=== PATIENT | female | born 1985 | race Caucasian/White ===

== ENCOUNTER 2019-06-11 17:27 | Outpatient (CLI) | payer BC, SELFPAY ==
--- NOTE | ~2019-06-11 | US_ITS ---
EXAMINATION: US OB <=14 wk fetus w TV EXAM DATE: 06/11/2019 18:11 INDICATION: Possible ectopic , vaginal bleeding. Beta hCG plateaued. First trimester. TECHNIQUE: Pelvic obstetrical transabdominal and transvaginal sonogram was performed by a cristina olivier. There are multiple grayscale and Doppler images available for interpretation. There are no odin ier studies of this gestation for comparison. FINDINGS: Uterus measures 8.6 x 7.0 x 4.6 cm, without intrauterine gestation identified. Uterus is r etroverted. Endometrial stripe measures 4 mm, within normal limits. There is hyperechoic focus which is in or near the endometrial cavity at the fundus measuring 8 mm, causing shadowing, likely calcific ation. Other smaller hyperechoic foci within the endometrial stripe. There is small to moderate amoun t of free pelvic fluid which is proteinaceous given the echogenicity. Right adnexa: The ovary measures 2.8 x 1.9 x 1.1 cm and is morphologically normal. Ovarian vascular f low confirmed. Immediately lateral, contiguous to the right ovary there is a thick-walled cystic stru cture measuring 1.6 x 1.2 x 1.3 cm, possible tubal ectopic but no yolk sac or pole co nfirmed within the cystic portion. There is some hypervascularity surrounding this. Left adnexa: The left ovary is normal in size and morphology. Vascular flow confirmed. IMPRESSION: 1. Thick-walled cystic structure contiguous to right ovary, possible tubal ectopic but no pole or yolk sac confirmed. 2. Small to moderate amount of proteinaceous free pelvic fluid, could be hemorrhage. 3. Echogenic foci within the endometrium or endometrial cavity, could be calcifications or less like ly tiny foci of gas. I confirmed patient is in the waiting room while Kevin Mcallister MD notified of results. Reviewed, dictated and finalized at location A. D AND FAMILY SERVICES WORKER IMPRESSION: 1. Thick-walled cystic structure contiguous to right ovary, possible tubal ect opic but no pole or yolk sac confirmed. 2. Small to moderate amount of proteinaceous free pelvic fluid, could be hemor rhage. 3. Echogenic foci within the endometrium or endometrial cavity, could be calci fications or less likely tiny foci of gas. I confirmed patient is in the waiting room while Kevin Mcallister MD notifie d of results.
== END 2019-06-11 17:28 | disposition home or self-care (01) ==
LOC: ANHIMG 17:32
PROVIDERS: Visit Provider Obstetrics & Gynecology
DX: O20.0 Threatened abortion (principal); Z3A.00 Weeks of gestation of pregnancy not specified
CPT/HCPCS: 76801; 76817

== ENCOUNTER 2019-06-12 09:24 | Day surgery (SDC) | payer BC, SELFPAY ==
[2019-06-12] VITALS (12 sets, daily range): BP systolic 103–126; BP diastolic 59–85; PULSE 72–99; RESP 12–19; TEMP 36.1–37.3; O2SAT 98–100; BMI 25.7
--- NOTE | 2019-06-12 12:45 | WPDANESEPPF ---
Anes - Initial Pre Proc Eval Procedure: Operation Date: 06/12/19 13:00 Proposed Procedures p Diagnostic Laparoscopy Possible Hysteroscopy, Dilation And Curettage - Neida Camilo MD Date/Time: 06/12/19 12:45 Surgeon: Neida Camilo MD Pre Op Diagnosis: o20.0 Patient Data Age: 33 Gender: F Height: Weight: Allergies Allergy/AdvReac Type Severity Reaction Status Date / Time No Known Allergies Allergy Unknown Verified 06/12/19 12:24 Home Medications Medication Instructions Recorded Confirmed Type No Home Medications 06/11/19 06/12/19 History Laboratory Tests 06/12/19 06/12/19 09:47 09:47 Beta HCG, Quant 3299.20 mIU/ML mIU/ML Blood Type A Negative Antibody Screen Negative Doses of RhIg Required 1 Patient hx anesthesia problems: none Family hx anesthesia problems: none [facility] Social History Social History (Updated 06/12/19 @ 12:45 by James Matthew DO) Smoking status: Former smoker Second hand tobacco smoke exposure: No Smoking end date: 04/08/05 Alcohol intake: current Anes - Eval Final PreProcedure Day of Procedure 06/12/19 12:45 Patient weight: normal Heart: regular rate and rhythm Lungs: clear to auscultation and normal air movement Airway: Mallampati scale class 1 Neurological: alert and oriented Last oral intake: 6 hours (eggs and bagel 0900) ASA classification: II Emergent: yes Anesthetic plan: proceed Anesthesia type and monitoring: general ETT and standard monitoring Informed Consent: The patient's anesthetic plan and its attendant risks and benefits were discussed with the patient/family/POA. Questions were solicited and answers provided to the satisfaction of the patient/family/POA.
[2019-06-12] MEDS: LACTATED RINGERS 1,000 ML 30 ML IV CONT ×3 (12:50→17:03)
[2019-06-12 13:04] LABS: Hematocrit 38.1 % (37.0-47.0)
--- NOTE | 2019-06-12 13:08 | PM.HPGS ---
History of Present Illness History of Present Illness Consent: Risks, benefits, and alternatives have been discussed and questions answered. Patient agrees to proceed with procedure. Chief complaint: o20.0 Narrative: Ashlee Drake is a 33 year old female LMP 05/10/2019 who presents for surgical management of presumed ectopic . Patient reports +UPT at home on 06/06 and reports bleeding the following day. Bleeding has since slowly subsided. Denies significant pain. She has had serial BHCG measurements over the past week which showed an abnormal rise. US done today showed no IUP with a thick walled structure in R adnexa measuring approx. 1.6 x 1.2 x 1.3 cm with some hypervascularity. Due to the inappropriate rise of BHCG and high suspicion for ectopic , decision made to proceed with diagnostic laparoscopy, possible operative laparoscopy with removal of ectopic , and suction D&C. Patient is Rh negative. Review of Systems Review of Systems: All systems reviewed & are unremarkable except as noted in HPI and below Constitutional: Constitutional: Reports as per HPI, Reports no additional constitutional complaints, Denies chills, Denies fever(s), Denies headache(s) and Denies night sweats Eyes: Eyes: Reports as per HPI and Reports no additional eye complaints ENT: Reports system reviewed and no additional complaints, except as documented, Reports as per HPI, Reports Normal hearing present and Denies headache(s) Cardiovascular: Cardiovascular: Reports as per HPI, Reports no additional cardiovascular complaints, Denies chest pain and Denies dyspnea Respiratory: Respiratory: Reports as per HPI, Reports no additional respiratory complaints, Denies cough and Denies dyspnea Gastrointestinal: Gastrointestinal: Reports as per HPI, Reports no additional gastrointestinal complaints, Denies abdominal pain, Denies change in bowel habits, Denies change in stool character, Denies nausea and Denies vomiting Genitourinary: Genitourinary: Reports no additional female genitourinary complaints, Reports as per HPI, Denies abnormal vaginal bleeding, Denies genital lesions, Denies hot flashes, Denies dyspareunia, Denies pelvic pain, Denies sexual dysfunction, Denies urinary incontinence, Denies vaginal discharge, Denies vaginal dryness and Denies vaginal odor Musculoskeletal: Musculoskeletal: Reports no additional musculoskeletal complaints and Reports as per HPI Integumentary/Breasts: Skin/Breast: Reports system reviewed and no additional complaints, except as docu, Reports as per HPI, Denies breast pain and Denies nipple discharge Neurologic: Reports system reviewed and no additional complaints, except as documented, Reports as per HPI, Reports Normal hearing present and Denies headache(s) Psychiatric: Psychiatric: Reports no additional psychiatric complaints, Reports as per HPI, Denies anxiety and Denies depression Endocrine: Endocrine: Reports no additional endocrine complaints and Reports as per HPI Hematologic/Lymphatic: Hematologic/Lymphatic: Reports no additional hematologic/lymphatic complaints and Reports as per HPI Allergic/Immunologic: Allergic/Immunologic: Reports no additional allergic/immunologic complaints and Reports as per HPI PMFSH Past Medical History Medical History (Updated 06/12/19 @ 13:21 by Neida Camilo MD) Depression Vaginal delivery x 2 Surgical History Surgical History (Updated 06/12/19 @ 13:20 by Neida Camilo MD) H/O lithotripsy x2 History of dilation and curettage Family History Family History Mother Family history of malignant neoplasm of uterus Social History Social History Smoking status: Former smoker Second hand tobacco smoke exposure: No Smoking end date: 04/08/05 Alcohol intake: current Meds Home Medications and Allergies Home Medications Medication I
--- NOTE | 2019-06-12 14:59 | PM.PROC ---
Procedure Note - Detailed Date of procedure: 06/12/19 Pre-op diagnosis: o20.0 Suspected right ectopic Post-op diagnosis: same Procedure performed: Laparoscopic right salpingectomy Suction dilation and curettage Description of procedure: The patient was taken to the operating room where she self transferred to operating room table. She was placed in dorsal supine position. Anesthesia was administered and found to be adequate. The patient was repositioned in dorsal lithotomy position with the use of Andrey stirrups. An examination anesthesia was performed with the uterus measuring approximately 7-8 week size. Cervical os closed. Minimal dark brown discharge noted on examining glove. She was prepped and draped in usual sterile fashion. A red rubber catheter was used to drain the bladder of 100 cc of light yellow urine. A bivalve speculum was inserted into the vagina. The cervix was well visualized. The anterior lip of the cervix was grasped with a single-tooth tenaculum. 10 cc of 1% lidocaine was used to administer a paracervical block with 5 cc on either side. The cervix was sounded to 8 cm. The cervix was serially dilated to a size 8 Hegar dilator. A size 8 rigid curette was introduced into the uterine cavity. The curette was attached to suction tubing and the aspirate her was activated. The curette was gently rotated to clear the uterus of all contents. Three short passes were made with the curette and a gritty texture was noted. A HUMI uterine manipulator was then inserted into the uterus and insufflated for use during laparoscopic portion of the case. The tenaculum was removed. Minimal oozing was noted from the tenaculum puncture sites. Bleeding was made hemostatic with silver nitrate. The speculum was removed. Internal Medicine Veterinary Technician's gloves were changed and attention was turned to the patient's abdomen. A small amount of Exparel was injected in the infraumbilical region. A small infraumbilical incision was made with a scalpel. With the abdomen tented up, a Veress needle was introduced into the abdominal cavity. Confirmation was made with saline. The Veress needle was attached to carbon dioxide tubing and insufflation was begun. When adequate pneumoperitoneum was achieved at 15 mmHg, the Veress needle was removed. An Optiview trocar was introduced into the abdominal cavity under direct visualization with the laparoscope. The trocar was removed and the laparoscope was replaced through the sheath. The patient was placed in Trendelenburg position and a pelvic survey was performed, however limited. Decision was made to place 2 accessory ports, 1 in the right lower quadrant and the other in the left lower quadrant. A small amount of Exparel was injected in the right lower quadrant. A 5 mm skin incision was made with a scalpel and a 5 mm trocar was introduced under direct visualization. Similarly, in the left lower quadrant, a small amount of Exparel was injected. a 10 mm skin incision was made and a 10 mm trocar was introduced also on direct visualization. With the use of an atraumatic grasper and blunt probe, a thorough pelvic survey was completed. A minimal amount of dark blood was noted in the posterior cul-de-sac. The uterus appeared to be normal as did the left fallopian tube. The left and right ovaries also appeared normal. The right fallopian tube appeared to be dilated in the infundibular region possibly extending to the ampullary region. No active bleeding from the fimbriated end was noted. The right ureter was visualized. Decision was made to attempt a right salpingostomy in an effort to salvage the fallopian tube. With the use of a LigaSure device using the L hook, a linear incision was made in the fallopian tube superior to the dilated area. When it was apparent that the lumen of the tube had been entered, laparoscopic trixie were then used to extend the incision. Minimal bleeding was encounter and made hemostatic with cautery. Tissue was v
[2019-06-12] MEDS: IBUPROFEN IV 800 MG/200 ML 800 MG/200 ML BAG 400 MG IVPB (16:05)
--- NOTE | 2019-06-12 17:20 | SUR.PHASEII ---
1650 assisted to bathroom per wheelchair ,unable to void at this time.
== END 2019-06-12 18:03 | disposition home or self-care (01) ==
PROVIDERS: Anesthesiology; Obstetrics & Gynecology; Visit Provider Student in an Organized Health Care Education/Training Program
PROC: 0UDB8ZZ Extraction of Endometrium, Via Natural or Artificial Opening Endoscopic (ICD-10-PCS; CPT 58558; principal; 2019-06-12 13:00)
DX: O00.101 Right tubal pregnancy without intrauterine pregnancy (principal); Z87.891 Personal history of nicotine dependence
CPT/HCPCS: 59151; 58558; 36415; 84702; 85014; 85018; 86850; 86900; 86901; 88302; 88305; 90384; 96372; C9290; J0131; J0330; J1100; J2405; J2704; J2710; J2790; J3010; J7120

== ENCOUNTER 2019-06-25 10:24 | Outpatient (RCR) | payer BC, SELFPAY ==
[2019-06-25 11:30] LABS: Beta HCG Quantitative 4.06 mIU/ML
== END 2019-09-06 23:59 | disposition home or self-care (01) ==
LOC: ANHLAB 10:24
PROVIDERS: Visit Provider Obstetrics & Gynecology
DX: O20.0 Threatened abortion (principal); Z3A.00 Weeks of gestation of pregnancy not specified
CPT/HCPCS: 36415; 84144; 84702

== ENCOUNTER 2019-09-21 07:33 | Outpatient (RCR) | payer BC, SELFPAY ==
[2019-09-21 21:52] LABS: Progesterone 16.2 ng/mL (***)
== END 2019-12-16 23:59 | disposition home or self-care (01) ==
LOC: ANHLAB 07:33
PROVIDERS: Visit Provider Obstetrics & Gynecology
DX: O09.10 Supervision of pregnancy with history of ectopic pregnancy, unspecified trimester (principal); Z3A.00 Weeks of gestation of pregnancy not specified
CPT/HCPCS: 36415; 84144; 84702

== ENCOUNTER → 2019-09-30 14:54 | Outpatient (CLI) | payer BC, SELFPAY ==
--- NOTE | ~2019-09-30 | US_ITS ---
EXAMINATION: US OB transvaginal EXAM DATE: 09/30/2019 15:20 INDICATION: Supervision of with history of ectopic. 1st trimester. TECHNIQUE: Pelvic obstetrical transvaginal sonogram was performed by a technologist. There are mult iple grayscale and Doppler images available for interpretation. Comparison is made to prior examinati on from 06/11/2019. FINDINGS: Uterus measures 9.5 x 7.4 x 6.9 cm. There is intrauterine gestation sac. pole with heart rate confirmed at 161 beats per minute. The 1.4 cm crown-rump length corresponds to estimated gestational age by ultrasound of 7 weeks 4 days, estimated date of confinement 05/14/2020. Yolk sac is identified. There is no sonographic evidence of subchorionic hemorrhage. The ovaries are both mo rphologically normal. IMPRESSION: Live intrauterine gestation, age by ultrasound 7 weeks 4 days. Reviewed, dictated and finalized at location B.
== END ==
PROVIDERS: Visit Provider Obstetrics & Gynecology
DX: O09.10 Supervision of pregnancy with history of ectopic pregnancy, unspecified trimester (principal); Z3A.01 Less than 8 weeks gestation of pregnancy
CPT/HCPCS: 76817

== ENCOUNTER 2020-01-16 08:12 | Outpatient (CLI) | payer BC, SELFPAY ==
[2020-01-16 09:08] LABS: T4 Thyroxine 9.51 ug/dL (5.53-11.0)
[2020-01-16 09:21] LABS: Thyroid Stimulating Hormone 0.919 uIU/mL (0.465-4.680)
== END 2020-01-16 08:13 | disposition home or self-care (01) ==
PROVIDERS: Visit Provider Obstetrics & Gynecology
DX: Z34.90 Encounter for supervision of normal pregnancy, unspecified, unspecified trimester (principal)
CPT/HCPCS: 36415; 84436; 84443

== ENCOUNTER 2020-01-30 06:57 | Outpatient (RCR) | payer BC, SELFPAY ==
[2020-01-30 08:46] LABS: Hematocrit 30.1 % (37.0-47.0); Hemoglobin 10.2 g/dL (12.0-15.0); Mean Corpuscular HGB Conc 33.9 g/dl (32-36); Mean Corpuscular Hemoglobin 29.9 pg (26-34); Mean Corpuscular Volume 88.3 fl (80-100); Mean Platelet Volume 9.6 fl (7.4-10.4); Platelet Count Result 209 k/mm3 (150-375); Red Blood Count 3.41 M/mm3 (4.2-5.4); Red Cell Distribution Width 12.8 % (11.5-14.5); White Blood Count 4.3 K/mm3 (4.5-10.0)
[2020-01-30 08:48] LABS: Glucose 1 Hour PP 50gm Dose 118 mg/dL
[2020-01-30] MEDS: RHO(D) IMMUNE GLOBULIN 300 MCG SYRINGE IM (13:53)
== END 2020-04-29 23:59 | disposition home or self-care (01) ==
LOC: ANHLAB 06:57
PROVIDERS: Visit Provider Obstetrics & Gynecology
DX: Z29.13 Encounter for prophylactic Rho(D) immune globulin (principal); O36.0990 Maternal care for other rhesus isoimmunization, unspecified trimester, not applicable or unspecified; Z3A.15 15 weeks gestation of pregnancy
CPT/HCPCS: 36415; 82947; 85027; 85461; 90384; 96372; J2790

== ENCOUNTER 2020-03-10 14:08 | Outpatient (CLI) | payer BC, SELFPAY ==
[2020-03-10] MEDS: TETANUS,DIPHTHERIA,AC PERTUSSIS ADULT (0.5 ML) BOOSTRIX IM (14:34)
== END 2020-03-10 14:30 | disposition home or self-care (01) ==
LOC: ANHOBOP 14:19 → ANHLDR 14:20
PROVIDERS: Visit Provider Obstetrics & Gynecology
DX: Z34.93 Encounter for supervision of normal pregnancy, unspecified, third trimester (principal); Z3A.29 29 weeks gestation of pregnancy; Z23 Encounter for immunization
CPT/HCPCS: 90471; 90653; 90715; 99199; G0008

== ENCOUNTER 2020-03-26 06:42 | Outpatient (CLI) | payer BC, SELFPAY ==
[2020-03-26 07:05] LABS: Basophils Percent Auto 0.2 % (0.2-1.2); Eosinophils Absolute Auto 0.1 K/mm3 (0-0.3); Eosinophils Percent Auto 1.6 % (0-4.4); Hematocrit 29.9 % (37.0-47.0); Hemoglobin 10.1 g/dL (12.0-15.0); Immature Granulocyte Absolute 0.03 K/mm3 (0.00-0.031); Immature Granulocyte Percent A 0.6 % (0-0.5); Lymphocytes Absolute Auto 1.03 K/mm3 (0.9-3.2); Lymphocytes Percent Auto 20.8 % (18.3-44.2); Mean Corpuscular HGB Conc 33.8 g/dl (32-36); Mean Corpuscular Hemoglobin 29.3 pg (26-34); Mean Corpuscular Volume 86.7 fl (80-100); Mean Platelet Volume 9.5 fl (7.4-10.4); Monocytes Absolute Auto 0.4 K/mm3 (0.1-0.6); Monocytes Percent Auto 7.1 % (2.6-8.5); Neutrophils Absolute Auto 3.5 K/mm3 (1.3-6.7); Neutrophils Percent Auto 69.7 % (45.5-73.1); Platelet Count Result 202 k/mm3 (150-375); Red Blood Count 3.45 M/mm3 (4.2-5.4); Red Cell Distribution Width 13.6 % (11.5-14.5)
[2020-03-26 07:56] LABS: HIV 1/2 Ab P24 Ag Result Negative (Negative)
[2020-03-28 11:04] LABS: Rapid Plasma Reagin Non-Reactive (NonReactive)
== END 2020-03-26 06:43 | disposition home or self-care (01) ==
PROVIDERS: Visit Provider Obstetrics & Gynecology
DX: Z34.93 Encounter for supervision of normal pregnancy, unspecified, third trimester (principal); Z3A.33 33 weeks gestation of pregnancy
CPT/HCPCS: 36415; 85025; 86592; 86703; G0432

== ENCOUNTER 2020-05-08 09:30 | Outpatient (RCR) | payer BC, SELFPAY ==
[2020-04-23 10:35] VITALS: BP 116/72; PULSE 97
--- NOTE | 2020-04-30 10:23 | PC.NURSE ---
Dr Benitez notified of prolonged decel. Orders for BPP and GUCCI, and prolong monitoring.
--- NOTE | 2020-04-30 11:10 | PC.NURSE ---
Second decel noted, tracing reviewed per Dr Benitez on unit. Patient now in US for BPP and GUCCI.
--- NOTE | 2020-04-30 11:42 | PC.NURSE ---
Dr Benitez on unit, BPP 8/8 and GUCCI is 11. Cont monitoring at this time. Plan of care discussed with Dr Benitez and patient.
[2020-04-30 12:47] VITALS: BP 121/76; PULSE 101
--- NOTE | 2020-04-30 12:47 | PC.NURSE ---
Dr Benitez up dated on tracing and no further decels noted. OK to dc home with kick counts.
[2020-05-05 15:30] VITALS: BP 120/72; PULSE 105
--- NOTE | ~2020-05-08 | US_ITS ---
EXAMINATION: US OB limited w BPP DATE: 04/30/2020 11:40 INDICATION: decelerations, third trimester TECHNIQUE: Real-time pelvic ultrasound was performed. The interpreting radiologist was not present fo r the study. COMPARISON: 04/23/2020 FINDINGS: There is a single living fetus in vertex presentation. The placenta is anterior. heart rate is 161 beats per minute (bpm). The amniotic fluid index is 11.3 cm which is normal Biophysical profile performed by the technologist: breathing (30 sec sustained breathing in 30 minutes): 2 out of 2 movement (3 gross body movements in 30 minutes): 2 out of 2 tone (one episode of qafdswr-ppwjzlojw-avrinos limb movement): 2 out of 2 Amniotic fluid pocket (2 cm): 2 out of 2 Total score: 8 out of 8 IMPRESSION: 1. Single living fetus in vertex presentation. 2. Biophysical profile 8 out of 8. 3. Normal amniotic fluid index. Reviewed, dictated and finalized at location A. MER SAWYER
--- NOTE | ~2020-05-08 | US_ITS ---
EXAMINATION: US OB limited DATE: 05/08/2020 10:59 INDICATION: Large for gestational age. Advanced maternal age. Assess amniotic fluid index. TECHNIQUE: Real-time ultrasound of the pelvis was performed. The interpreting radiologist was not pre sent for the study. COMPARISON: 05/05/2020 FINDINGS: There is a single living fetus in vertex presentation. The placenta is anterior. heart rate is 130 beats per minute (bpm). The amniotic fluid index is 13.3 cm, which is normal (5th%-95%: 7.2-22.6 cm at 39 weeks estimated gestational age). IMPRESSION: 1. Single living fetus in vertex presentation with heart rate of 130 bpm. 2. Normal amniotic fluid index of 13.3 cm. Reviewed, dictated and finalized at location A. RING SALES MANAGER IMPRESSION: 1. Single living fetus in vertex presentation with heart rate of 130 bpm . 2. Normal amniotic fluid index of 13.3 cm.
--- NOTE | ~2020-05-08 | US_ITS ---
EXAMINATION: US OB limited w BPP DATE: 04/23/2020 10:38 LEVER MILLER INDICATION: Large for gestational age. Evaluate well-being. TECHNIQUE: Real-time transabdominal obstetric ultrasound. FINDINGS: No prior studies for comparison. There is a single living fetus in vertex presentation. The placenta is fundal without placenta previ a. Normal GUCCI measures 14.3 cm (normal range for gestational age is 7.5-24.4 cm). cardiac activity and movement is noted with a heart rate of 149 beats per minute. Biophysical profile: breathin of 2 movement: 2 of 2 tone: 2 of 2 Amniotic flud pocket: 2 of 2 Total score: 8 of 8 IMPRESSION: 1. Single living intrauterine in vertex presentation. 2: Total biophysical profile score of 8/8. 3: Normal GUCCI measures 14.3 cm. Reviewed, dictated and finalized at location A. R MILLER
--- NOTE | ~2020-05-08 | US_ITS ---
EXAMINATION: US OB limited DATE: 05/05/2020 15:22 INDICATION: Large for gestational age. Third trimester. TECHNIQUE: Real-time ultrasound of the pelvis was performed. COMPARISON: None. FINDINGS: There is a single fetus in vertex presentation. The placenta is left frontal. heart rate is 14 1 beats per minute (bpm). The amniotic fluid index is 15.0 cm, which is normal. IMPRESSION: 1. Single living fetus in vertex presentation. Reviewed, dictated and finalized at location A. ET CONTROLLER
== END 2020-05-13 07:43 | disposition home or self-care (01) ==
LOC: ANHOBOP 09:30
PROVIDERS: PCP Nurse Practitioner; Visit Provider Obstetrics & Gynecology
DX: O36.8330 Maternal care for abnormalities of the fetal heart rate or rhythm, third trimester, not applicable or unspecified (principal); Z3A.35 35 weeks gestation of pregnancy; O09.513 Supervision of elderly primigravida, third trimester; O36.63X0 Maternal care for excessive fetal growth, third trimester, not applicable or unspecified; Z3A.36 36 weeks gestation of pregnancy; Z3A.37 37 weeks gestation of pregnancy; Z3A.38 38 weeks gestation of pregnancy; Z3A.39 39 weeks gestation of pregnancy
CPT/HCPCS: 59025; 76815; 76819

== ENCOUNTER 2020-05-13 03:10 | Inpatient (IN) | payer BC, SELFPAY ==
[2020-05-13] VITALS (15 sets, daily range): BP systolic 109–162; BP diastolic 51–92; PULSE 78–109; RESP 18; TEMP 36.8–36.9; O2SAT 99; BMI 18.1
[2020-05-13 03:42] LABS: Basophils Percent Auto 0.2 % (0.2-1.2); Eosinophils Absolute Auto 0.1 K/mm3 (0-0.3); Eosinophils Percent Auto 1.4 % (0-4.4); Hematocrit 36.8 % (37.0-47.0); Hemoglobin 11.9 g/dL (12.0-15.0); Immature Granulocyte Absolute 0.03 K/mm3 (0.00-0.031); Immature Granulocyte Percent A 0.5 % (0-0.5); Lymphocytes Absolute Auto 1.38 K/mm3 (0.9-3.2); Mean Corpuscular HGB Conc 32.3 g/dl (32-36); Mean Corpuscular Hemoglobin 28.2 pg (26-34); Mean Corpuscular Volume 87.2 fl (80-100); Mean Platelet Volume 9.3 fl (7.4-10.4); Monocytes Absolute Auto 0.5 K/mm3 (0.1-0.6); Monocytes Percent Auto 8.2 % (2.6-8.5); Neutrophils Absolute Auto 3.8 K/mm3 (1.3-6.7); Neutrophils Percent Auto 65.7 % (45.5-73.1); Platelet Count Result 240 k/mm3 (150-375); Red Blood Count 4.22 M/mm3 (4.2-5.4); Red Cell Distribution Width 14.7 % (11.5-14.5); White Blood Count 5.7 K/mm3 (4.5-10.0)
--- NOTE | 2020-05-13 03:50 | LDADM ---
This patient, Ashlee Drake, was admitted to Labor/Delivery/Recovery 105 on 05/13/20 at 03:10. Plans for labor, pain management and were discussed with patient. Patient/family oriented to hospital policies and general routines including ID bracelet, bed and alarms, visiting hours, pain management, procedures, bathroom and other care routines, personal items, smoking policy, room service/diet and guest tray routines, security routines, and visiting hours. Patient/Family are encouraged to report perceived risks to care and to ask questions if they do not understand what they are told or what they should do. See OBIX for further documentation.
--- NOTE | 2020-05-13 05:29 | PM.IMHP ---
H&P: HPI History of Present Illness Date/Time: 05/13/20 05:29 Chief Complaint: Leaking of fluid and contractions. Narrative: Ashlee Drake is a 34 year old female at 39 5/7 weeks admitted for SROM at approximately 0230. Clear. She started kellie regularly soon after. PNC significant for AMA and LGA. She had episodic kidney stones relieved with Flomax. She has been getting serial ultrasounds for growth and surveillance due to AMA and LGA. GBS negative. labs reviewed. No changes in medical history since her last visit. Review of Systems Review of Systems: All systems reviewed & are unremarkable except as noted in HPI and below Constitutional: Constitutional: Reports no additional constitutional complaints and Denies headache(s) Eyes: Eyes: Denies spots in vision ENT: Reports system reviewed and no additional complaints, except as documented and Denies headache(s) Cardiovascular: Cardiovascular: Denies chest pain and Denies dyspnea Respiratory: Respiratory: Denies dyspnea Gastrointestinal: Gastrointestinal: Reports no additional gastrointestinal complaints Genitourinary: Genitourinary: Reports amenorrhea Musculoskeletal: Musculoskeletal: Reports no additional musculoskeletal complaints Integumentary/Breasts: Skin/Breast: Denies breast mass and Denies rash Neurologic: Denies headache(s) Psychiatric: Psychiatric: Reports no additional psychiatric complaints [facility] Past Medical History Medical History (Updated 05/13/20 @ 05:37 by Kevin Mcallister MD) History of ectopic Vaginal delivery x 2 Surgical History Surgical History H/O lithotripsy x2 History of dilation and curettage Family History Family History Mother Family history of malignant neoplasm of uterus Social History Social History Smoking status: Never smoker Second hand tobacco smoke exposure: No Smoking end date: 04/08/05 Alcohol intake: current Substance use: never Gender identity (if verbalized by the patient): Female Spiritual care concerns: No Meds Home Medications and Allergies Home Medications Medication Instructions Recorded Confirmed Type prenat.vits,gely,pab-ybjo-lrhbn 1 tablet PO DAILY 09/17/19 05/05/20 History Allergies Allergy/AdvReac Type Severity Reaction Status Date / Time No Known Allergies Allergy Unknown Verified 05/10/20 13:33 Vital Signs Vital Signs - 24 hr 05/13/20 03:29 05/13/20 03:58 05/13/20 04:06 Temperature 98.5 F Pulse Rate 85 91 Blood Pressure 162/92 H 137/92 H 05/13/20 05:08 05/13/20 05:15 Temperature Pulse Rate 96 94 Blood Pressure 117/51 L 129/76 Exam Const: General: no acute distress Eyes: General: appearance normal, both eyes and all related structures Resp: Effort & Inspection: normal respiratory effort Cardio: Rate: regular rate GI: Other: Gravid no fundal tenderness no right upper quadrant pain : External Female Exam: normal external appearance Manual OB Exam: dilated 6 cm, effaced 75% and station -2 Skin: General skin exam: no rashes or lesions noted Neuro: Cognition (Neuro): normal cognition Extrem: General: normal to inspection Psych: Mental Status: mental status grossly normal H&P: Results Labs Labs: Short CBC 05/13/20 Range/Units 03:35 WBC 5.7 (4.5-10.0) K/mm3 Hgb 11.9 L (12.0-15.0) g/dL Hct 36.8 L (37.0-47.0) % Plt Count 240 (150-375) k/mm3 Assessment and Plan Assessment and plan (1) Spontaneous rupture of membranes: Status: Acute (2) Active labor: Status: Acute Assessment and Plan: Negative GBS carrier. Admit. Expectant management. Anticipate vaginal delivery.
--- NOTE | 2020-05-13 05:38 | PM.OBPRVD ---
OB - Delivery Note Procedure Delivery date: 05/13/20 Procedure: Spontaneous vaginal delivery Intrapartal events: Precipitous Labor < 3 hours Induction method: none Delivery monitor: external FHT Route of delivery: Episiotomy description: Midline ( bradycardia) Delivery repair: vicryl (3.0 vicryl) Specimen: No Quantitative Blood Loss (ml): 200 Anesthesia type: Local Disposition: floor Complications: None [place] Baby Date of : 05/13/20 Time of : 04:27 Weeks of gestation at delivery: 39 gender: Male Weight (pounds): 8 Weight (ounces): 13 presentation: vertex position: Right Occiput Anterior Placenta delivery description: Spontaneous (trailing membranes, accessory lobe noted, lower uterine segment swept and retrieved small amount of placenta fragments, uterine tone good, cervix visualized no placenta products visualized ) cord vessel description: Nuchal Cord (x3) and Delayed Cord Clamping score one minute: 8 score five minutes: 9 Narrative: Terminal meconium noted.
[2020-05-13] MEDS: IBUPROFEN 600 MG TABLET PO ×3 (06:56→18:31)
[2020-05-13 08:50] LABS: Rapid Plasma Reagin Non-Reactive (NonReactive)
[2020-05-13] MEDS: DOCUSATE SODIUM 100 MG CAPSULE PO ×2 (09:14→15:24)
[2020-05-13] MEDS: MULTIVIT/MIN/PREN/FOL AC/IRON TABLET 1 TAB PO (09:14)
[2020-05-13] MEDS: ACETAMINOPHEN 325 MG TABLET 650 MG PO ×2 (09:15→15:25)
[2020-05-14 05:51] LABS: Hematocrit 27.6 % (37.0-47.0)
[2020-05-14] MEDS: DOCUSATE SODIUM 100 MG CAPSULE PO ×2 (07:30→16:41)
[2020-05-14] MEDS: MULTIVIT/MIN/PREN/FOL AC/IRON TABLET 1 TAB PO (07:30)
[2020-05-14] MEDS: IBUPROFEN 600 MG TABLET PO ×2 (07:30→16:42)
[2020-05-14] MEDS: POLYSACCHARIDE IRON COMPLEX 150 MG CAPSULE PO ×2 (07:30→16:42)
[2020-05-14 08:20] VITALS: BP 113/71; PULSE 87; RESP 18; TEMP 36.4; O2SAT 96
--- NOTE | 2020-05-14 11:30 | PC.NURSE ---
Patient passed a large clot while in the bathroom, she was able to catch it in the tucks container and save it. Dr. Mcallister on the floor and took a look at the clot, fundus firm at one below. Clot weighed 236 grams, orders received to monitor bleeding and notifiy Dr. Mcallister if bleeding is heavy or if patient passes a large clot again.
--- NOTE | 2020-05-14 12:06 | PM.GYNPNOP ---
SIEBEL ARCHITECT - A/P Assessment and plan (1) Status post vaginal delivery: Status: Acute Assessment and Plan: She is doing well. Passed large clot this am. No signs of hypotonia. Will continue to observe. (2) anemia: Code(s): O90.81 - Anemia of the puerperium Status: Acute Assessment and Plan: Asymptomatic. Iron supplementation. Time Spent With Patient Time: Total time spent is greater than 50% in coordination of care (as documented) at patient's floor/unit and/or counseling patient: Time with patient: less than 15 minutes SIEBEL ARCHITECT- PN:Subj Post-Op Subjective Date/time seen: 05/14/20 12:06 She states she feels fine. No leg pain. Ambulating well. She had a large clot this am, prior to that minimal bleeding. Exam Psych: Affect: normal affect Other: Abd: fundus firm -3 below umbilicus, nontender Perineum: healing Ext: nontender SIEBEL ARCHITECT - PN: Obj Data Vital Signs Vital Signs: Vital Signs - 24 hr 05/13/20 19:45 05/14/20 08:20 Temperature 98.2 F 97.6 F Pulse Rate 98 87 Respiratory Rate 18 18 Blood Pressure 123/72 113/71 Pulse Oximetry 99 96 Intake/Output Intake/Output: Intake & Output 05/11/20 05/12/20 05/13/20 05/14/20 23:59 23:59 23:59 23:59 Intake Total 240 Output Total 195 Balance -195 240 Meds/Results Medications: Active Medications Generic Name Dose Route Start Last Admin Trade Name Freq PRN Reason Stop Dose Admin Acetaminophen 650 mg 05/13/20 05:27 05/13/20 15:25 Acetaminophen 325 Mg Tablet PO 650 mg Q6H PRN Administration Mild Pain (1-3) or Headache Benzocaine 1 spray 05/13/20 05:27 Benzocaine 20% Aer Spr (*Sp) 56 Gm Can TOPICAL PRN PRN Perineal Discomfort Dibucaine 1 applic 05/13/20 05:27 Dibucaine 1% Ointment 30 Gm Tube TOPICAL PRN PRN Hemorrhoids Docusate Sodium 100 mg 05/13/20 05:27 05/14/20 07:30 Docusate Sodium 100 Mg Capsule PO 100 mg BID PRN Administration Constipation Emollient Ointment 1 applic 05/13/20 05:27 Lanolin (Lansinoh) 7.5 Gm Cream TOPICAL PRN PRN Sore Nipples Ibuprofen 600 mg 05/13/20 05:27 05/14/20 07:30 Ibuprofen 600 Mg Tablet PO 600 mg Q6H PRN Administration Cramping Polysaccharide Iron Complex 150 mg 05/13/20 08:00 05/14/20 07:30 Polysaccharide Iron Complex 150 Mg Capsule PO 150 mg BIDWM WILLY Administration Vit/Calcium/Iron/Folic Ac 1 tab 05/13/20 09:00 05/14/20 07:30 Multivit/Min/Pren/Fol Ac/Iron Tablet PO 1 tab DAILY WILLY Administration Simethicone 80 mg 05/13/20 05:27 Simethicone 80 Mg Tab.Chew PO Q2H PRN Gas Witch Ann-Marie 1 pad 05/13/20 05:27 Witch Ann-Marie 40 Pads TOPICAL PRN PRN Perineal Discomfort Zolpidem Tartrate 5 mg 05/13/20 05:27 Zolpidem Tartrate (*Crx) 5 Mg Tablet PO HS PRN Insomnia Labs CBC & Chem 7: 05/14/20 04:06 Labs: Laboratory Results - last 24 hr 05/14/20 04:06 Hgb 9.0 L Hct 27.6 L
[2020-05-14] MEDS: WITCH HAZEL 40 PADS 1 PAD TOPICAL (16:43)
[2020-05-14 20:05] VITALS: BP 120/80; PULSE 88; RESP 16; TEMP 36.6; O2SAT 100
--- NOTE | 2020-05-14 20:05 | PC.NURSE ---
Patient viewed the discharge video Mother & Baby Care, The First Two Weeks online. Patient was given the opportunity and encouraged to ask questions. Patient verbalized understanding of information shared and has been given the mother/baby guide for home reference.
[2020-05-15] MEDS: ACETAMINOPHEN 325 MG TABLET 650 MG PO (01:49)
[2020-05-15] MEDS: DOCUSATE SODIUM 100 MG CAPSULE PO (08:06)
[2020-05-15] MEDS: POLYSACCHARIDE IRON COMPLEX 150 MG CAPSULE PO (08:06)
[2020-05-15] MEDS: MULTIVIT/MIN/PREN/FOL AC/IRON TABLET 1 TAB PO (08:06)
[2020-05-15 08:15] VITALS: BP 117/79; PULSE 89; RESP 18; TEMP 36.9
--- NOTE | 2020-05-15 10:47 | P.PNOB_ITS ---
OB - PN: Subj Subjective Date/time seen: 05/15/20 10:47 Patient comments: pain well controlled, tolerating diet and other (Decreasing lochia.) baby status: doing well and nursing well [place] feeding status: exclusively breast feeding OB - PN: Obj Data Labs CBC & Chem 7: 05/14/20 04:06 OB - PN A/P Plan day: 2 Plan: discharge home and other Comments: Patient doing well. Follow up 4-6 weeks. Discharge instructions provided. Asymptomatic post anemia. Time Spent With Patient Time: Total time spent is greater than 50% in coordination of care (as documented) at patient's floor/unit and/or counseling patient: Time with patient: less than 15 minutes Exam Psych: Affect: normal affect Other: Abd: fundus firm below umbilicus, nontender Perineum: healing Ext: nontender
--- NOTE | 2020-05-15 10:48 | PM.OBDSVD ---
DS: Admitting Diagnosis Admitting Diagnosis Admitting Diagnosis: Labor. Spontaneous rupture of membranes. DS: Discharge Diagnosis Discharge Diagnosis (1) Active labor: Status: Acute (2) Spontaneous rupture of membranes: Status: Acute OB - DS: Summary OB Procedures : NST and Ultrasound OB Procedures Intrapartum: Spontaneous Vag Delivery OB Procedures: : None Time Spent with Patient Time attestation: Total time spent providing and/or coordinating discharge services: Exam Const: General: comfortable and no acute distress Eyes: General: appearance normal, both eyes and all related structures Resp: Effort & Inspection: normal respiratory effort GI: Inspection: normal to inspection Extrem: General: normal to inspection Psych: Appearance: grossly normal Discharge Plan Discharge Attending physician on discharge: Kevin Mcallister Discharging Clinician: Kevin Mcallister Anticipated Discharge Date/Time: 05/15/20 10:44 Patient Disposition: Home, Self-Care Activity: may shower and pelvic rest Diet: regular Discharge Instructions: Routine post vaginal delivery instructions. Pelvic rest for 4-6 weeks. Take iron supplement for four weeks. Take PNV daily. Call for fever, saturating more than a pad an hour, leg pain or redness. Patient Instructions: Antibiotic Form Stand Alone Forms: General Discharge Information Follow-up/Referrals: Kevin Mcallister MD [Physician] - 4 Weeks (Make appointment for 4-6 weeks. Call for appointment.) Discharge Medications: Continued prenat.vits,gely,uoo-quxl-jahzp Tablet 1 tablet PO DAILY RF: 0 Date of admission: 05/13/20 03:10 Primary Care Provider: Letitia,Lavonne Rashid Admitting Provider: Kevin Mcallister Attending physician on admission: Kevin Mcallister Condition: Stable
--- NOTE | 2020-05-15 11:56 | PC.NURSE ---
Patient was given the opportunity to view the discharge video Mother & Baby Care, The First Two Weeks and to ask questions. Patient declined viewing the video and has been given the mother/baby guide for home reference.
[2020-05-16 08:04] VITALS: BP 114/78; PULSE 83; RESP 20; TEMP 36.8; O2SAT 99
== END 2020-05-15 12:10 | disposition home or self-care (01) | DRG 807 ==
LOC: ANHLDR 03:37 → ANHOB2 07:23
PROVIDERS: Admitting Provider Obstetrics & Gynecology; PCP Nurse Practitioner; Visit Provider Obstetrics & Gynecology
DX: O62.3 Precipitate labor (principal); Z37.0 Single live birth; Z3A.39 39 weeks gestation of pregnancy; O36.8330 Maternal care for abnormalities of the fetal heart rate or rhythm, third trimester, not applicable or unspecified; O69.81X0 Labor and delivery complicated by cord around neck, without compression, not applicable or unspecified; O77.0 Labor and delivery complicated by meconium in amniotic fluid; O43.193 Other malformation of placenta, third trimester; O90.81 Anemia of the puerperium; D64.9 Anemia, unspecified
CPT/HCPCS: 36415; 85014; 85018; 85025; 86592; 86850; 86900; 86901; A9270

== ENCOUNTER 2020-05-29 16:36 | Outpatient (CLI) | payer BC, SELFPAY ==
[2020-05-29 17:40] VITALS: RESP 16; TEMP 37.2
== END 2020-05-29 17:30 | disposition home or self-care (01) ==
LOC: ANHOBOP 16:47 → ANHOBPP 17:10 → ANHOBOP 17:35
PROVIDERS: PCP Nurse Practitioner; Visit Provider Obstetrics & Gynecology
DX: O72.2 Delayed and secondary postpartum hemorrhage (principal)
CPT/HCPCS: 99199

== ENCOUNTER 2020-06-16 10:43 | Outpatient (CLI) | payer BC, SELFPAY ==
--- NOTE | ~2020-06-16 | US_ITS ---
EXAMINATION: US pelvic complete w TV EXAM DATE: 06/16/2020 11:13 INDICATION: O72.1 - Other immediate hemorrhage. 5 weeks . TECHNIQUE: Pelvic transabdominal and transvaginal sonogram was performed. There are multiple graysca le and Doppler images available for interpretation. No prior is available for comparison. FINDINGS: Uterus measures 10.3 x 7.4 x 6.2 cm, with heterogeneous hyperechoic endometrium measuring 2.4 cm in thickness, could be retained products of conception. Right adnexa: The ovary is not identified. There is no adnexal mass. Left adnexa: The ovary is not identified. There is no adnexal mass. IMPRESSION: Thickened hyperechoic endometrium, could indicate retained products of conception. I discussed this case with Padmini in the office of the ordering clinician Kevin Mcallister MD at 06/16 13:52 GRADE SETTER. Reviewed, dictated and finalized at location B. E SETTER IMPRESSION: Thickened hyperechoic endometrium, could indicate retained products of conception. I discussed this case with Padmini in the office of the ordering clinician Kevin Mcallister MD at 06/16/2020 13:52 GRADE SETTER.
== END 2020-06-16 10:44 | disposition home or self-care (01) ==
PROVIDERS: PCP Nurse Practitioner; Visit Provider Obstetrics & Gynecology
DX: O72.1 Other immediate postpartum hemorrhage (principal)
CPT/HCPCS: 76830; 76856

== ENCOUNTER 2020-06-18 09:16 | Outpatient (CLI) | payer BC, SELFPAY ==
[2020-06-18 09:56] LABS: Hematocrit 33.3 % (37.0-47.0); Hemoglobin 10.6 g/dL (12.0-15.0); Mean Corpuscular HGB Conc 31.8 g/dl (32-36); Mean Corpuscular Hemoglobin 26.4 pg (26-34); Mean Platelet Volume 9.1 fl (7.4-10.4); Platelet Count Result 329 k/mm3 (150-375); Red Blood Count 4.01 M/mm3 (4.2-5.4); Red Cell Distribution Width 13.9 % (11.5-14.5)
== END 2020-06-18 09:17 | disposition home or self-care (01) ==
PROVIDERS: PCP Nurse Practitioner; Visit Provider Obstetrics & Gynecology
DX: O72.1 Other immediate postpartum hemorrhage (principal)
CPT/HCPCS: 36415; 85027

== ENCOUNTER 2020-07-16 07:49 | Outpatient (CLI) | payer BC, SELFPAY ==
--- NOTE | ~2020-07-16 | XR_ITS ---
EXAMINATION: XR abdomen/kub 1V INDICATION: Left-sided kidney TECHNIQUE: Supine views of the abdomen were obtained on 2 radiographs. COMPARISON: 04/17/2019 FINDINGS: No urolithiasis is identified. The bowel gas pattern is normal. There are no dilated loops of bowel. The visualized osseous structures are unremarkable. IMPRESSION: 1. No urolithiasis identified. Reviewed, dictated and finalized at location A.
== END 2020-07-16 07:50 | disposition home or self-care (01) ==
PROVIDERS: PCP Nurse Practitioner; Visit Provider Urology
DX: N20.0 Calculus of kidney (principal)
CPT/HCPCS: 74018

== ENCOUNTER 2020-11-01 15:20 | Outpatient (CLI) | payer BC, SELFPAY ==
--- NOTE | ~2020-11-01 | US_ITS ---
EXAMINATION: US pelvic complete w TV DATE: 11/01/2020 16:46 INDICATION: Excessive bleeding. Comparison:06/16/2020 TECHNIQUE: Multiple transabdominal and endovaginal sonographic images of the pelvis performed. FINDINGS: The uterus measures 6.4 x 4.8 x 5.3 cm. The endometrial complex measures 8 mm. Endometrium is hyperechoic with areas of shadowing, possibly calcifications. The right ovary measures 2.6 x 1.5 x 2.5 cm and the left ovary measures 2.3 x 1.3 x 1 cm. There are small follicles in each ovary. Normal doppler signal in both ovaries. There is no free fluid in the pelvis. There are no abnormal masses seen on either side. IMPRESSION: 1. Hyperechoic endometrium with areas of shadowing, possibly calcifications. Otherwise, unremarkable pelvic ultrasound. Reviewed, dictated and finalized at location A. IMPRESSION: 1. Hyperechoic endometrium with areas of shadowing, possibly calcifications. Ot herwise, unremarkable pelvic ultrasound.
== END 2020-11-01 15:21 | disposition home or self-care (01) ==
PROVIDERS: PCP Nurse Practitioner; Visit Provider Obstetrics & Gynecology
DX: N92.0 Excessive and frequent menstruation with regular cycle (principal)
CPT/HCPCS: 76830; 76856

== ENCOUNTER 2021-01-29 18:30 | Emergency (ER) | payer BC, SELFPAY ==
--- NOTE | ~2021-01-29 | CT_ITS ---
EXAMINATION: CT abdomen pelvis w con DATE: 01/29/2021 20:09 INDICATION: Nausea and vomiting this morning TECHNIQUE: Computed tomography (CT) of the abdomen and pelvis was performed with 100 cc Omnipaque 350 intravenous contrast. Automated exposure control and iterative reconstruction technique were employe d. Exam dose: 750.42 mGy-cm total exam DLP. COMPARISON: None. FINDINGS: The lung bases are clear of consolidation. Normal heart size. No pericardial or pleural eff usion. There are are several small hepatic cysts. There are multiple dependent gallstones. No gallbladder wall thickening or pericholecystic fluid or f at stranding. No bile duct or pancreatic duct dilatation. The spleen measures 12 cm vertical dimension, within upper normal range. No pancreatic mass lesion, calcification or ductal dilatation. There are couple of 5 mm or smaller left renal cysts. 3 mm nonobstructing mid left renal probable calculus. No ureteral calculus or hydroureteronephrosis. Retroverted uterus. The urinary bladder is unremarkable. Normal caliber of the abdominal aorta. No intraperitoneal or retroperitoneal or pelvic mass lesion or adenopathy or ascites. There is prominent fluid distention and air-fluid levels of the stomach. No evidence of appendicitis. Nondilated fluid containing small bowel segments and occasional small sara wel air-fluid levels are noted. There are air-fluid levels and some fluid within the colon and rectum . The findings suggest enterocolitis. 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 IMPRESSION: Fluid distention of the stomach, small bowel and colon and rectum with small bowel and c olonic air-fluid levels; findings suggest enterocolitis Cholelithiasis Small hepatic cysts and left small renal cysts Reviewed, dictated and finalized at Location A. Reviewed, dictated and finalized at location A. IMPRESSION: Fluid distention of the stomach, small bowel and colon and rectum with small bowel and colonic air-fluid levels; findings suggest enterocolitis Cholelithiasis Small hepatic cysts and left small renal cysts
[2021-01-29 18:31] VITALS: BP 102/77; PULSE 110; RESP 18; TEMP 37.5; O2SAT 98
[2021-01-29] MEDS: MORPHINE SULFATE (*CRX) 4 MG/ML INJ IV PUSH (19:32)
[2021-01-29] MEDS: ONDANSETRON INJ 4 MG/2 ML VIAL IV PUSH (19:32)
[2021-01-29] MEDS: DICYCLOMINE HCL INJ 20 MG/2 ML VIAL IM (19:32)
[2021-01-29] MEDS: SODIUM CHLORIDE 0.9% IV 1,000 ML 999 ML IV CONT ×2 (19:32→21:14)
[2021-01-29 19:40] LABS: Add Urine Microscopic? YES; Appearance Urine Cloudy (Clear); Bilirubin Urine Negative (Negative); Blood Urine Negative (Negative); Color Urine Yellow (Yellow); Glucose Urine UA Negative (Negative); Ketones Urine 2+ mg/dL (Negative); Leukocyte Esterase Ur Negative LEU/UL (Negative); Mucus Urine Few /lpf; Nitrate Urine Negative (Negative); Protein Urine Negative (Negative); Specific Grav Ur 1.029 (1.001-1.035); Squamous Epithelial Cell Urine Moderate /hpf (Few); Urobilinogen Urine Negative mg/dL (<2.0)
[2021-01-29 19:43] LABS: Basophils Percent Auto 0.4 % (0.2-1.2); Eosinophils Percent Auto 0.4 % (0-4.4); Hematocrit 45.2 % (37.0-47.0); Hemoglobin 14.7 g/dL (12.0-15.0); Immature Granulocyte Absolute 0.01 K/mm3 (0.00-0.031); Immature Granulocyte Percent A 0.2 % (0-0.5); Lymphocytes Absolute Auto 0.16 K/mm3 (0.9-3.2); Lymphocytes Percent Auto 3.4 % (18.3-44.2); Mean Corpuscular HGB Conc 32.5 g/dl (32-36); Mean Corpuscular Hemoglobin 28.5 pg (26-34); Mean Corpuscular Volume 87.8 fl (80-100); Mean Platelet Volume 9.1 fl (7.4-10.4); Monocytes Absolute Auto 0.2 K/mm3 (0.1-0.6); Monocytes Percent Auto 4.5 % (2.6-8.5); Neutrophils Absolute Auto 4.3 K/mm3 (1.3-6.7); Neutrophils Percent Auto 91.1 % (45.5-73.1); Platelet Count Result 205 k/mm3 (150-375); Red Blood Count 5.15 M/mm3 (4.2-5.4); Red Cell Distribution Width 13.3 % (11.5-14.5); White Blood Count 4.7 K/mm3 (4.5-10.0)
[2021-01-29 19:55] LABS: Alanine Aminotransferase 17 U/L (4-35); Albumin Level 4.4 g/dL (3.5-5.1); Alkaline Phosphatase 54 U/L (38-126); Anion Gap 12 mmol/L (8-16); Aspartate Amino Transferase 26 U/L (14-36); Bilirubin,Total 1.1 mg/dL (0.2-1.3); Blood Urea Nitrogen 17 mg/dL (7-17); Calcium 8.6 mg/dL (8.4-10.2); Carbon Dioxide 19 mmol/L (22-30); Chloride 108 mmol/L (98-107); Estimated CRCL calculation 110 ml/min; Estimated Glomerular Filt Rate > 60; Glucose 107 mg/dL (65-110); Lipase 54 U/L (23-300); Potassium 3.7 mmol/L (3.4-5.0); Sodium 139 mmol/L (137-145)
[2021-01-29 20:15] VITALS: BP 117/80; PULSE 110; RESP 16; O2SAT 99
--- NOTE | 2021-01-29 21:12 | ED.GENADULT ---
HPI - General Adult General Chief complaint: Nausea/Vomiting/Diarrhea Stated complaint: n/v Time Seen by Provider: 01/29/21 19:08 History of Present Illness HPI narrative: Patient 35-year-old female presents the emergency department chief complaint of nausea vomiting diarrhea. Patient reports that she had sudden onset this morning with multiple episodes of vomiting and has had several episodes of diarrhea. The patient reports been unable to keep fluids down reports that her stomach's been cramping with this denies fever denies chills denies recent antibiotics. Patient reports symptoms or not improved by anything. Related Data Home Medications Medication Instructions Recorded Confirmed prenat.vits,gely,ghp-ditn-dvtdc 1 tablet PO DAILY PRN 10/04/20 10/04/20 Allergies Allergy/AdvReac Type Severity Reaction Status Date / Time No Known Allergies Allergy Unknown Verified 01/29/21 19:41 Review of Systems Review of Systems: A 10 system review of systems was completed on the patient and is negative except for what is stated in the HPI. Nursing and ancillary documentation was reviewed. PMFSH Past Medical History Medical History (Updated 01/29/21 @ 21:16 by Austin Burks MD) History of ectopic Vaginal delivery x 2 Surgical History Surgical History H/O lithotripsy x2 History of dilation and curettage Family History Family History Mother Family history of malignant neoplasm of uterus Carcinoma of colon Bladder cancer Social History Social History Smoking status: Former smoker Second hand tobacco smoke exposure: No Smoking end date: 04/08/05 Alcohol intake: current Substance use: never Gender identity (if verbalized by the patient): Female Spiritual care concerns: No Exam Narrative: GENERAL: Well-appearing, well-nourished, and in no acute distress. HEAD: Normocephalic, atraumatic. EYES: PERRLA and EOMI. ENT: Nares clear, no rhinorrhea or epistaxis. Mucous membranes moist. NECK: Supple. CHEST: Clear to auscultation. No respiratory distress. HEART: Regular rate and rhythm. No murmur heard. Normal peripheral pulses. ABDOMEN: Soft, mild diffuse tenderness, nondistended, normal active bowel sounds. EXTREMITIES: Normal range of motion. No edema. SKIN: Warm, dry, no rash. NEURO: No focal deficits. Alert and oriented x3. PSYCH: Normal mood and affect. Course Vital Signs Vital signs: Vital Signs Temperature 37.5 C 01/29/21 18:31 Pulse Rate 110 H 01/29/21 18:31 Respiratory Rate 18 01/29/21 18:31 Blood Pressure 102/77 01/29/21 18:31 Pulse Oximetry 98 01/29/21 18:31 Temperature 37.5 C 01/29/21 18:31 Pulse Rate 110 H 01/29/21 20:15 Respiratory Rate 16 01/29/21 20:15 Blood Pressure 117/80 01/29/21 20:15 Pulse Oximetry 99 01/29/21 20:15 Medical Decision Making Vital Signs Vital Signs: Vital Signs Temperature 37.5 C 01/29/21 18:31 Pulse Rate 110 H 01/29/21 18:31 Respiratory Rate 18 01/29/21 18:31 Blood Pressure 102/77 01/29/21 18:31 Pulse Oximetry 98 01/29/21 18:31 Temperature 37.5 C 01/29/21 18:31 Pulse Rate 110 H 01/29/21 20:15 Respiratory Rate 16 01/29/21 20:15 Blood Pressure 117/80 01/29/21 20:15 Pulse Oximetry 99 01/29/21 20:15 Lab Data Result diagrams: 01/29/21 19:37 01/29/21 19:37 Labs: Lab Results 01/29/21 01/29/21 01/29/21 Range/Units 19:32 19:37 19:37 WBC 4.7 (4.5-10.0) K/mm3 RBC 5.15 (4.2-5.4) M/mm3 Hgb 14.7 D (12.0-15.0) g/dL Hct 45.2 (37.0-47.0) % MCV 87.8 (80-100) fl MCH 28.5 (26-34) pg MCHC 32.5 (32-36) g/dl RDW 13.3 (11.5-14.5) % Plt Count 205 (150-375) k/mm3 MPV 9.1 (7.4-10.4) fl Immature Gran % (A
[2021-01-29 22:07] VITALS: BP 118/74; PULSE 110; RESP 16; O2SAT 99
== END 2021-01-29 22:41 | disposition home or self-care (01) ==
PROVIDERS: Emergency Provider Emergency Medicine; PCP Nurse Practitioner
DX: K52.9 Noninfective gastroenteritis and colitis, unspecified (principal); Z87.891 Personal history of nicotine dependence
CPT/HCPCS: 36415; 74177; 80053; 81001; 81025; 83690; 85025; 96361; 96372; 96374; 96375; 99284; J0500; J2270; J2405; J7030; Q9967

== ENCOUNTER 2024-08-13 07:42 | Outpatient (CLI) | payer OTHER, SELFPAY ==
--- NOTE | ~2024-08-13 | MM_ITS ---
EXAMINATION: MM screening rohit BI w juwan HISTORY: Screening TECHNIQUE: Craniocaudal and mediolateral oblique 3-D tomosynthesis images were obtained and synthetic 2-D images were generated. CAD analysis was submitted and interpreted. COMPARISON: No prior mammogram is available for comparison at this institution. BREAST PARENCHYMAL COMPOSITION: Dense: The breasts are extremely dense, which lowers the sensitivity of mammography. FINDINGS: There is no evidence of suspicious mass, calcification, or architectural distortion to sugg est malignancy in either breast. There has been no suspicious interval change. IMPRESSION: 1. No mammographic evidence of malignancy. 2. Recommend routine screening mammography in one year. BI-RADS Category 1: Negative Reviewed, dictated and finalized at location A.
--- OUTSIDE RECORDS SUMMARY | 2024-08-13 07:46 | XMS_ITS | Encounter Summary ---
Author Organization [facility] Address [address] [place] [address] Care Team Providers Care Slicer Machine Operator Name Role Phone Justin Verde MD Primary Care Provider [phone] Encounter Details Date Type Department Care Team (Late st Contact Info) Description 09/27/2022 Lab Requisition [facility] - Derm[facility] Lab [address] [place] [id number] Dagmar Cruz, PAMario Alberto [address] [place] [address] Neoplasm of uncertain behavior of skin Social History Tobacco Use Types Packs/Day Years Used Date Smoking Tobacco: Former Cigarettes Q uit: 04/08/2008 Smokeless Tobacco: Former Quit: 05/24/2008 Alcohol Use Standard Drinks/Week Comments Yes 0.8 (1 standard drink = 0.6 oz p ure alcohol) Comments Unknown Sex and Gender Information Value Date Recorded Sex Assigned at Not on file 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 Gender Identity Not on file Sexual Orientation Not on file documented as of this encounter Plan of Treatment Not on file documented as of this encounter Procedures Procedure Name Priority Date/Time Associated Diagnosis Comments DERMATOPATHOLOGY Routine 09/27/2022 12:0 0 AM CDT Neoplasm of uncertain behavior of skin [ICD-10-CM] documented in this encounter Results * DERMATOPATHOLOGY (09/27/2022 12:00 AM CDT) Case Report Dermatopathology Report Case: [id number] Authorizing Provider: Dagmar Cruz PA-C Collected: 09/27/2022 12:00 AM Ordering Location: [facility] DermPath Lab Received: 09/28/2022 01:12 PM Pathologist: Gillian Arellano MD Specimen: Skin, left flank 12:14 PM T DERMATOPATHOLOGY LABORATORY Final Diagnosis Specimen A. SKIN, left flank: LENTIGINOUS MELANOCYTIC NEVUS, COMPOUND TYPE, IRRITATED AND INFLAMED (D22.5) (see microscopic description and comment) 12:14 PM [facility] DERMATOPATHOLOGY LABORATORY Clinical History Atypical Nevus 12:14 PM [facility] DERMATOPATHOLOGY LABORATORY Gross Description Specimen A: Received is one formalin filled container labeled with the patient's name and designated left flank. The specimen consists of a shave biopsy measuring 5x3x1 mm. Jar 0. 12:14 PM [facility] DERMATOPATHOLOGY LABORATORY Microscopic Description Specimen A. SKIN, left flank: This is a compound nevus. There is melanin pigment within the stratum corneum. There is a lentiginous proliferation of melanocytes between nests of cells along the dermal-epidermal junction, highlighted by MART-1/Melan-A immunohistochemical staining. There is underlying fibroplasia of the papillary dermis. The intradermal component is bland appearance and matures with depth. Original and deeper sections were reviewed. (Compound Alan's Nevus) There is a lymphohistiocytic infiltrate within the dermis. This lesion is present at the margin of the specimen. COMMENT: If this specimen is sampled from a larger lesion, these findings may not be bilingual sales representative of the entire lesion. Clinicopathologic correlation is recommended. 12:14 PM [facility] DERMATOPATHOLOGY LABORATORY Disclaimer An external and internal positive and negative controls are appropriate for the histochemical, immunohistochemical and immunofluorescence stain(s) in this case (if any), except where stated explicitly. The performance characteristics of the stain(s) cited in this report were developed and its performance characteristic determined by the Dermatopathology Laboratory at [facility], directed by Dr. Caryn Oropeza. These tests need not be, and therefore are not, approved by the [place] Food and Drug Administration. The tests are used for clinical purposes. Billing Codes Specimen Charges Stain Charges 51130 1 94672 1 3 12:14 PM CDT DERMATOPATHOLOGY LABORATORY Embedded Images 3 12:14 PM CDT DERMATOPATHOLOGY LABORATORY Pathology/Cytolog y TISSUE SPECIMEN FROM SKIN / Unknown 09/27/2022 09/28/2022 1:12 PM CDT Dagmar Cruz PA-C LAB - PATHOLOGY/CYTOLOGY [facility] Final Result DERMATOPATHOLOGY LABORATORY [facility] - Department of Dermatology [facility] Medicine [address] [place] [address], [address] [phone] documented in this encounter Visit Diagnoses Diagnosis Neoplasm of uncertain behavior of skin documented in this encounter Care Teams Slicer Machine Operator Relationship Specialty Start Date End Date Justin Verde MD [address] [place] [id number] PCP - General 03/18/15 documented as of this encounter
--- OUTSIDE RECORDS SUMMARY | 2024-08-13 07:46 | XMS_ITS | Clinical Summary ---
Author Organization [facility] Address [address] [place] [address] Care Team Providers Care Sales Administrator Name Role Phone Lavonne Dong NP Primary Care Provider [phone] Allergies No known active allergies Medications scopolamine (TRANSDERM-SCOP) 1 MG/3DAYS patchIndications :Motion sickness, initial encounter Place 1 patch onto the skin every third day. 10 patch 12/19/2022 Active Active Problems Problem Noted Date Diagnosed Date Family history of Barcenas syndrome 12/21/2021 Overview (12/21/2021): Added automatically from request for surgery [id number] Screening for colon cancer 12/21/2021 Overview (12/21/2021): Added automatically from request for surgery [id number] Abdominal cramping 12/21/2021 Overview (12/21/2021): Added automatically from request for surgery [id number] Family hx of colon cancer 12/21/2021 Overview (12/21/2021): Added automatically from request for surgery [id number] Loose stools 12/21/2021 Overview (12/21/2021): Added automatically from request for surgery [id number] Resolved Problems Problem Noted Date Diagnosed Date Resolved Date No known health problems 04/20/2020 Immunizations Immunization Administration Dates Next Due Influenza (Generic) 02/03/2021 Influenza Adult (Generic) 03/10/2020 Tdap (Generic) 03/10/2020 Family History Medical History Relation Comments Hyperlipidemia Father Barcenas Syndrome Maternal Uncle Cancer Mother Colon Cancer Mother Barcenas Syndrome Mother Seizures Mother Uterine Cancer Mother bladder cancer Mother Colon polyps Sister Relation Status Comments Father Maternal Uncle Alive Mother Sister Social History Tobacco Use Types Packs/Day Years Used Date Smoking Tobacco: Former Cigarettes 0.3 5 0 08/21/2009 - 08/21/2014 Passive Smoke Exposure: Never Smokeless Tobacco: Never Tobacco Cessation:Counseling Given: Not Answered Alcohol Use Standard Drinks/Week Comments Not Currently 0 (1 standard drink = 0.6 oz pur e alcohol) PHQ-2 Answer Date Recorded Patient Health Questionnaire-2 Score 0 08/10/2022 Comments No Sex and Gender Information Value Date Recorded Sex Assigned at Not on file 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 Gender Identity Not on file Sexual Orientation Not on file Last Filed Vital Signs Vital Sign Reading Time Taken Comments Blood Pressure 118/89 12/19/2022 10:21 AM CDT Pulse 77 12/19/2022 10:21 AM CDT Temperature 36.9 C (98.4 F) 12/19/2022 10:21 AM CDT Respiratory Rate 16 12/19/2022 10:21 AM CDT Oxygen Saturation 98% 12/19/2022 10:21 AM CDT Inhaled Oxygen Concentration - - Weight 75.1 kg (165 lb 9.6 oz) 12/19/2022 10:21 AM CDT Height 162.6 cm (5' 4 ) 12/19/2022 10:21 AM CDT Body Mass Index 28.43 12/19/2022 10:21 AM CDT Plan of Treatment Health Maintenance Due Date Last Done Comments Cervical Cancer Screening Pa p Smear (Age 30 to 64) Every 3 Years 1983 Hepatitis B Vaccines (1 of 3 - 19+ 3-dose series) 07/10/2002 Mammogram Screening 2023 COVID-19 Vaccine (2023-2 5 season) 2023 Annual Physical 12/20/2023 12/19/2022, 11/29/2021 PHQ-2 (Physician [place]) 04/08/2024 08/10/2022 Cervical Cancer Screening Pa p with HPV Testing (Age 30 to 64) Every 5 Years 10/19/2026 10/19/2021 Cervical Cancer Screening wi th HPV 10/19/2026 DTaP, Tdap and Td Vaccines ( 2 - Td or Tdap) 03/10/2030 03/10/2020 Hepatitis C Completed 12/14/2021 HPV Vaccines Aged Out No longer eligi ble based on patient's age to complete this topic Meningococcal B Vaccine Aged Out No l onger eligible based on patient's age to complete this topic Meningococcal Vaccine Aged Out No terrance shaugfta eligible based on patient's age to complete this topic Pneumococcal Vaccine: Pediatrics (0 to 5 Years) and At-Risk Patients (6 to 49 Years) Aged Out No longer eligible b ased on patient's age to complete this topic RSV Immunizations Under 20 Months Aged Out No longer eligible b ased on patient's age to complete this topic Procedures Procedure Name Priority Date/Time Associated Diagnosis Comments HEPATITIS C ANTIBODY W/RFX TO HCV RNA Routine 12/14/2021 8:09 AM CDT Need for hepatitis C screening test OUTSIDE CYTOPATH CERV/VAG INTERPRET (PAP) 10/19/2021 from Last 3 Months or Most Recently Relevant to Health Maintenance Results * HEPATITIS C ANTIBODY W/RFX TO HCV RNA ([facility] ONLY) (12/14/2021 8:09 AM CDT) HEPATITIS C AB NON-REACTI VE NON-REACT CHAPO [facility] SIGNAL TO CUTOFF 0.01 <[address] [facility] Comment: HCV antibody was non-reactive. There is no laboratory evidence of HCV infection. In most cases, no further action is required. However, if recent HCV exposure is suspected, a test for HCV RNA (test code 32123) is suggested. For additional information please refer to http://education.[employer]/faq/SKV54h9 (This link is being provided for informational/ educational purposes only.) 12/14/2021 8:09 AM CDT 12/15/2021 3:49 AM CDT us Lavonne Dong NP LABORATORY Final Res ult [facility] [address] [address] [id number] * PAP SMEAR WITH HPV (10/19/2021) 10/19/2021 Narrative 10/19/2021 Ordered by an unspecified provider. us Documents Scanned SCANNING Final Result from Last 3 Months or Most Recently Relevant to Health Maintenance Insurance [employer] Care Teams Sales Administrator Relationship Specialty Start Date End Date Lavonne Dong NP [address] [place] [address] PCP - General NURSE PRACTITIONER 04/11/20
--- OUTSIDE RECORDS SUMMARY | 2024-08-13 07:46 | XMS_ITS | Clinical Summary ---
Author Organization [facility] Address [address] [place] [address] Care Team Providers Care Moisture Meter Operator Name Role Phone No, Physician Primary Care Provider [phone] Immunizations Immunization Administration Dates Next Due Influenza, Quadrivalent, Spl it, Preservative Free, Intramuscular 03/10/2020 Influenza, Unspecified 02/03/2021 Rho (D) Immune Globulin, IV or IM 08/07/2018 Tdap 03/10/2020 Social History Tobacco Use Types Packs/Day Years Used Date Smoking Tobacco: Never Assessed Personal Safety Answer Date Recorded Getting School Help Needed Not on file 06/22 Comments Unknown Sex and Gender Information Value Date Recorded Sex Assigned at Not on file Legal Sex Female 8:02 AM CDT Gender Identity Not on file Sexual Orientation Not on file Plan of Treatment Not on file Insurance [facility] CHOICE PLUS Care Teams Moisture Meter Operator Relationship Specialty Start Date End Date No, Physician PCP - General 11/10/21
--- OUTSIDE RECORDS SUMMARY | 2024-08-13 07:46 | XMS_ITS | Referral Summary ---
Author Organization [facility] Address [address] [place] [address] Care Team Providers Care Lead Painter Name Role Phone No, Physician Primary Care Provider [phone] Immunizations Immunization Administration Dates Next Due Influenza, [...] Plan of Treatment Not on file Insurance [facility] CHOICE PLUS [facility] HMO/PPO Address: [id number] [place] [address] Care Teams Lead Painter Relationship Specialty Start Date End Date No, Physician PCP - General 11/10/21
--- OUTSIDE RECORDS SUMMARY | 2024-08-13 07:46 | XMS_ITS | Clinical Summary ---
Author Organization [facility] Address [address] [place] [address] Care Team Providers Care Water Treatment Operator Name Role Phone Justin Verde MD Primary Care Provider [phone] Source Comments [facility],non-owned Affiliates and Associated Physician Practices is amultiple site organization consisting of ambulatory clinics and hospital sitesin [place], [place], [place] and [place]. This disclosure is being madepursuant to the Care Everywhere program and may not contain all information available regarding this patient. Last updated 17.[facility] Allergies No known active allergies Medications * Be aware that medications may not be up to date on this document. Alwaysverify current medications with the patient. 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 Other viral warts 05/28/2022 Seborrheic keratosis 02/23/2019 Skin tag 02/23/2019 Multiple benign melanocytic nevi of upper and lower extremities and trunk 09/15/2018 [place] angioma 09/15/2018 Telangiectasia 09/15/2018 Lentigines 09/15/2018 Immunizations Immunization Administration Dates Next Due INFLUENZA VACCINE 02/03/2021 Family History Medical History Relation Name Comments Cancer - Skin, Non Melanoma Father basal cell Hypertension Father Alcohol abuse Maternal Grandfather Cancer - Prostate Maternal Grandfather Other Maternal Grandfather primary thrombocythemia Brain Tumor Maternal Grandmother gliobla stoma multiforme age 76 Cancer - Uterine Mother other MMMT dx age 61 Seizures Mother other Status: d Alcohol abuse Paternal Grandmother CVA Paternal Grandmother Asthma Neg Hx Cancer - Breast Neg Hx Cancer - Other Neg Hx Cancer - Skin, Melanoma Neg Hx Eczema Neg Hx Hemophilia Neg Hx Psoriasis Neg Hx Relation Name Status Comments Father Maternal Grandfather Maternal Grandmother Mother other Paternal Grandmother Social History Tobacco Use Types Packs/Day Years Used Date Smoking Tobacco: Former Cigarettes Q uit: 04/08/2008 Smokeless Tobacco: Former Quit: 05/24/2008 Tobacco Cessation:Counseling Given: Not Answered Alcohol Use Standard Drinks/Week Comments Yes 0.8 (1 standard drink = 0.6 oz p ure alcohol) Comments Unknown Sex and Gender Information Value Date Recorded Sex Assigned at Not on file Legal Sex Female 5:56 PM GROUP PROGRAM MANAGER Gender Identity Not on file Sexual Orientation Not on file Plan of Treatment Health Maintenance Due Date Last Done Comments LIPID TESTING 1985 MAMMOGRAM 1985 PAP SMEAR 1983 HIV SCREENING 07/10/1998 HEPATITIS C SCREENING 07/06/2001 DTAP/TDAP/TD VACCINES (1 - Tdap) 07/10/2002 HEPATITIS B VACCINE (1 of 3 - 19+ 3-dose series) 07/10/2002 COVID-19 VACCINE (1 - 2023-2 5 season) 2023 DEPRESSION SCREENING 04/08/2024 INFLUENZA VACCINE (Season Ended) 2024 02/04/20 21 ZOSTER VACCINE (1 of 2) 07/10/2033 HIB VACCINE Aged Out No longer eligi ble based on patient's age to complete this topic HPV VACCINE Aged Out No longer eligi ble based on patient's age to complete this topic MENINGOCOCCAL (Group B) VACC INE SHARED DECISION-MAKING Aged Out No longer eligibl e based on patient's age to complete this topic MENINGOCOCCAL GROUPS A/C/Y/W VACCINE Aged Out No longer eligible b ased on patient's age to complete this topic PNEUMOCOCCAL VACCINE Aged Out No long er eligible based on patient's age to complete this topic Insurance [facility] Care Teams Water Treatment Operator Relationship Specialty Start Date End Date Justin Verde MD [address] [place] [address] PCP - General 03/18/15
--- OUTSIDE RECORDS SUMMARY | 2024-08-13 07:46 | XMS_ITS | Clinical Summary ---
Author Organization [facility] Address [address], [facility] [address] [place] [address] Phone Care Team Providers Care Party Chief Name Role Phone Lavonne Dong APRN, RUPERTO Primary Care Provid er Ney Ayers MD Unavailable [phone] Allergies No known active allergies Medications Testosterone 10 MG/ACT (2%) Gel 15 mg by Transdermal route. Active Active Problems Problem Noted Date Diagnosed Date Leucopenia 01/24/2023 Family History Medical History Relation Name Comments Cancer Father Cancer Mother Relation Name Status Comments Father Alive Mother Sister Alive Social History Tobacco Use Types Packs/Day Years Used Date Smoking Tobacco: Former Cigarettes Q uit: 2009 Smokeless Tobacco: Never Tobacco Cessation:Counseling Given: Not Answered Alcohol Use Standard Drinks/Week Comments Not Currently 0 (1 standard drink = 0.6 oz pur e alcohol) Sexually Active Control Partners Comments Yes Comments Unknown Sex and Gender Information Value Date Recorded Sex Assigned at Not on file Legal Sex Female 10:49 AM CDT Gender Identity Not on file Sexual Orientation Not on file Last Filed Vital Signs Vital Sign Reading Time Taken Comments Blood Pressure 126/84 01/24/2023 1:45 PM CDT Pulse 96 01/24/2023 1:45 PM CDT Temperature 36.9 C (98.4 F) 01/24/2023 1:45 PM CDT Respiratory Rate - - Oxygen Saturation 99% 01/24/2023 1:45 PM CDT Inhaled Oxygen Concentration - - Weight 74.8 kg (164 lb 14.4 oz) 01/24/2023 1:45 PM CDT Height 162.6 cm (5' 4 ) 01/24/2023 1:45 PM CDT Body Mass Index 28.31 01/24/2023 1:45 PM CDT Plan of Treatment Health Maintenance Due Date Last Done Comments Mammogram 1985 Hepatitis B Immunization (1 of 3 - 19+ 3-dose series) 07/10/2002 Pap Smear 07/10/2004 Cervical Cancer Screening (CCS) 07/10/2013 HPV/Cotest 07/10/2013 Discussion re Starting/Frequency of Mammograms 2023 Influenza Immunization (#1) 12/08/202301/07, 03/10/2020, 03/10/2020 SARS-COV-2 Immunization (2023- season) 2023 Respiratory Syncytial Virus (RSV) Immunization (Adult) (1 - 1-dose 75+ series) 07/10/2058 DTaP/Tdap/Td Immunization Discontinued 03/10/2020 TdaP Immunization Completed 03/10/2020 Hepatitis C Virus (HCV) Screening Completed 01/24/2023 Meningococcal Immunization (ACWY) Aged Out No longer eligible based on patient's age to complete this topic Pneumococcal Immunization Combined Aged Out No longer eligible based on patient's age to complete this topic Rotavirus Immunization Aged Out No lo nger eligible based on patient's age to complete this topic Procedures Procedure Name Priority Date/Time Associated Diagnosis Comments HEPATITIS C ANTIBODY Routine 01/24/2023 2:05 PM CDT Leukopenia, unspecified type from Last 3 Months or Most Recently Relevant to Health Maintenance Results * HEPATITIS C ANTIBODY (01/24/2023 2:05 PM CDT) HEPATITIS C VIRUS AB SIGNAL CUTOFF NON REACTIVE NON REACTIVE CANCER INBOUND CUSTOMER SERVICE REPRESENTATIVE [facility] HEPATITIS C VIRUS AB COMMENT CANCER INBOUND CUSTOMER SERVICE REPRESENTATIVE [facility] Comment: NOT INFECTED WITH HCV UNLESS EARLY OR ACUTE INFECTION IS SUSPECTED (WHICH MAY BE DELAYED IN AN IMMUNOCOMPROMISED INDIVIDUAL), OR OTHER EVIDENCE EXISTS TO INDICATE HCV INFECTION. Blood 01/24/2023 2:05 PM CDT Narrative CANCER INBOUND CUSTOMER SERVICE [facility] - 01/25/2023 10:08 AM CDT TESTING PERFORMED AT: [CB] [facility], [address], [place], [address], PHONE: [phone], OXIDATION OPERATOR: AHMET MYLES, PHD Release to patient->Immediate us Ney Ayers MD CHEMISTRY ORDERABLES Final R esult CANCER INBOUND CUSTOMER SERVICE REPRESENTATIVE OF [facility] [address] [place] [address], from Last 3 Months or Most Recently Relevant to Health Maintenance Insurance [facility] Care Teams Party Chief Relationship Specialty Start Date End Date Lavonne Dong, CORPORATE ADMINISTRATIVE ASSISTANT, WIG SALES CONSULTANT [address] [place] [address] PCP - General Advanced Practice Nurse 12/28/22 Ney Ayers MD [address] [place] [id number] Consulting Physician Oncology 12/28/22
--- OUTSIDE RECORDS SUMMARY | 2024-08-13 07:46 | XMS_ITS | Clinical Summary ---
Author Organization [facility] [address] Address [address] [facility] 3[address] [place] [address] Phone Care Team Providers Care Director Women Name Role Phone Unavailable Primary Care Provider Unavailabl e Social History Tobacco Use Types Packs/Day Years Used Date Smoking Tobacco: Never Assessed Comments Unknown Sex and Gender Information Value Date Recorded Sex Assigned at Not on file Legal Sex Female 9:03 AM CLINICAL PROVIDER TRAINER Gender Identity Not on file Sexual Orientation Not on file Plan of Treatment Health Maintenance Due Date Last Done Comments DTAP/TDAP/TD VACCINES (1 - Tdap) 07/10/2002 HEPATITIS B VACCINES (1 of 3 - 19+ 3-dose series) 07/10/2002 HPV/Cotest (21-29) 07/10/2004 CERVICAL CANCER SCREENING 07/10/2013 HPV/Cotest (30-65) 07/10/2013 PAP SMEAR 07/10/2013 BREAST CANCER SCREENING 2023 INFLUENZA VACCINE (#1) 2023 HPV VACCINES Aged Out No longer eligi ble based on patient's age to complete this topic Insurance BS BLUE ACCESS/TRUE BLUE PPO [facility] CHOICE [id number] [address] [id number]
--- OUTSIDE RECORDS SUMMARY | 2024-08-13 07:46 | XMS_ITS | Encounter Summary ---
Author Organization [facility] Address [address] [place] [address] Care Team Providers Care Poultry Service Technician Name Role Phone Lavonne Dong NP Primary Care Provider [phone] Encounter Details Date Type Department Care Team (Late st Contact Info) Description 12/18/2021 [place] [facility] Message Enc [facility] [place] [address] [facility] [place] [phone] Lavonne Dong, BROOKS [address] [place] [address] CBC results Social History Tobacco Use Types Packs/Day Years Used Date Smoking Tobacco: Never Smokeless Tobacco: Never Alcohol Use Standard Drinks/Week Comments Not Currently 0 (1 standard drink = 0.6 oz pur e alcohol) PHQ-2 Answer Date Recorded PHQ-2 Score - If the patient scores above 3, please move on to questions 3-9 0 12/15/2021 Comments No Sex and Gender Information Value Date Recorded Sex Assigned at Not on file Legal Sex Female 12:46 PM BOX TOE CUTTER Gender Identity Not on file Sexual Orientation Not on file COVID-19 Exposure Response Date Recorded In the last 10 days, have yo u been in contact with someone who was confirmed or suspected to have Coronavirus/COVID-19? No / Unsure 12/14/2021 7:59 AM CDT documented as of this encounter Plan of Treatment Not on file documented as of this encounter Visit Diagnoses Not on filedocumented in this encounter Additional Health Concerns Assessment Noted Time PHQ-9 Depression Total Score: 0 11/30/19 22 9:18 AM CDT documented as of this encounter Care Teams Poultry Service Technician Relationship Specialty Start Date End Date Lavonne Dong NP [address] [facility] [address] [place] [address] PCP - General NURSE PRACTITIONER 04/11/20 documented as of this encounter
== END 2024-08-13 07:43 | disposition home or self-care (01) ==
PROVIDERS: PCP Nurse Practitioner; Visit Provider Nurse Practitioner Family
DX: Z12.31 Encounter for screening mammogram for malignant neoplasm of breast (principal)
CPT/HCPCS: 77063; 77067